=== PATIENT | male | born 1980 | race Caucasian/White ===

== ENCOUNTER 2016-11-09 21:07 | Emergency (ER) | payer BC ==
--- NOTE | 2016-11-09 22:15 | ER Document Report ---
HPI - HPI Patient complains to provider of: right knee pain Onset: This afternoon Onset/Duration: Sudden Pain Level: 5 Context: Patient presents to the emergency department with complaints of right knee pain. Patient reports he was unloading logs and twisted his knee. He denies falling on the knee. He denies past medical history of injury to the knee. Patient reports pain since that time. Associated Symptoms: None Exacerbated by: Movement, Walking Relieved by: Denies Similar symptoms previously: No Recently seen / treated by doctor: No - DERM Skin Color: Normal Past Medical History - General Information source: Patient - Social History Smoking Status: Unknown if Ever Smoked Cigarette use (# per day): No Chew tobacco use (# tins/day): Yes Frequency of alcohol use: None Drug Abuse: None Occupation: none Lives with: Family Family History: None Patient has suicidal ideation: No Patient has homicidal ideation: No Pulmonary Medical History: Reports: Hx Asthma Renal/ Medical History: Denies: Hx Peritoneal Dialysis Surgical Hx: Negative Vertical Provider Document - CONSTITUTIONAL Agree With Documented VS: Yes Exam Limitations: No Limitations General Appearance: WD/WN, No Apparent Distress - HEENT HEENT: Atraumatic, Normocephalic - NECK Neck: Normal Inspection, Supple - RESPIRATORY Respiratory: Breath Sounds Normal, No Respiratory Distress O2 Sat by Pulse Oximetry: 97 - CARDIOVASCULAR Cardiovascular: Regular Rate - MUSCULOSKELETAL/EXTREMETIES Musculoskeletal/Extremeties: MAEW, FROM, Tender - No obvious swelling no obvious deformity complains of pain to right knee medially reports pain with valgus/vargus stress. - NEURO Level of Consciousness: Awake, Alert, Appropriate Motor/Sensory: No Motor Deficit - DERM Integumentary: Warm, Dry Adult Front & Back Diagram: 1 - reports pain Course - Re-evaluation Re-evalutation: 11/09/16 Patient instructed on negative x-ray for knee immobilizer crutches importance of follow-up with orthopedics. Pt verbalized understanding to all instructions. - Vital Signs Vital signs: Temp Pulse Resp BP Pulse Ox 98.1 F 97 20 176/108 H 97 11/09/16 21:16 11/09/16 21:16 11/09/16 21:16 11/09/16 21:16 11/09/16 21:16 - Diagnostic Test Radiology reviewed: Image reviewed, Reports reviewed - RAD/ KNEE RIGHT 4 VIEWS IMPRESSION: NEGATIVE STUDY OF THE RIGHT KNEE. NO RADIOGRAPHIC EVIDENCE OF ACUTE INJURY Procedures - Immobilization Right Knee Pre-Proc Neuro Vasc Exam: Normal Immobilizer type: Knee immobilizer Performed by: PCT Post-Proc Neuro Vasc Exam: Unchanged from pre-exam Discharge - Discharge Clinical Impression: Right medial knee pain, Elevated blood pressure reading Condition: Stable Disposition: HOME, SELF-CARE Instructions: Use of Crutches ([facility]), Ice & Elevation ([facility]), Suspected Internal Knee Injury ([facility]), Oral Narcotic Medication ([facility]), Knee Immobilizing Splint ([facility] ) Additional Instructions: *You have been evaluated for right knee pain, suspect internal injury, elevated blood pressure reading *Maintain the splint and use the crutches *Rest/Ice/Elevate *Follow up with orthopedics-call for an appointment on Friday *Take medication as prescribed *Return to ED for worsening condition, changes, needs Monitor your blood pressure. Your blood pressure was elevated today. This may be because you were anxious, in pain or because you need medication. It is important to follow up with your primary care provider for full evaluation. Prescriptions: Oxycodone HCl/Acetaminophen [Percocet 5-325 mg Tablet] 1 - 2 tab PO ASDIR PRN # 15 tablet PRN Reason: Forms: Elevated Blood Pressure
[2016-11-09] MEDS ORDERED: HYDROCODONE/ACETAMINOPHEN 5-325 MG 6 TAB/DSPK PO PRN (22:22)
[2016-11-09 22:38] VITALS: BP 158/100
== END 2016-11-09 22:38 | disposition home or self-care (01) ==
LOC: ER 21:07
DX: M25.561 Pain in right knee (principal); X50.1XXA Overexertion from prolonged static or awkward postures, initial encounter; Y93.89 Activity, other specified; J45.909 Unspecified asthma, uncomplicated; R03.0 Elevated blood-pressure reading, without diagnosis of hypertension
CPT/HCPCS: 99283; 73564; L1830

== ENCOUNTER 2019-06-13 20:10 | Emergency (ER) | payer SELFPAY ==
[2019-06-13] MEDS ORDERED: DIPH/PERTUSS(ACELL)/TETANUS VAC/PF 0.5 ML SYR (>=10YO) IM ONE (20:25)
[2019-06-13] MEDS ORDERED: AMOXICILLIN TR/POT CLAVULANATE 500-125 MG TAB PO ONE (20:25)
--- NOTE | 2019-06-13 20:29 | ER Document Report ---
ED Medical Screen (RME) - General Chief Complaint: Animal Bite Stated Complaint: DOG BITE Time Seen by Provider: 06/13/19 20:22 Mode of Arrival: Ambulatory Information source: Patient Notes: 39-year-old male presented to ED for a dog bite to the left thumb and right arm. He states it happened yesterday at his parents house. He states there were 2 dogs fighting and his parents yard and he went to break the fight up. He states neither 1 of them looked sick but they were stray dog and he does not know whether the immunizations are up-to-date or not. He states his tetanus is not up-to-date. He states he is not allergic to anything. Smoker, he states he thinks between daily and weekly and denies any use of illicit drugs. He is alert oriented respirations regular and unlabored speaking in full sentences. He states he is not able to move his thumb due to the pain and swelling. He states he cleaned it yesterday with peroxide and then put Band-Aids on he has not put any current antibiotic ointment on it. I have greeted and performed a rapid initial assessment of this patient. A comprehensive ED assessment and evaluation of the patient, analysis of test results and completion of medical decision making process will be conducted by an additional ED providers. - Related Data Allergies/Adverse Reactions: No Known Allergies Allergy (Unverified 11/09/16 21:16) Past Medical History Pulmonary Medical History: Reports: Hx Asthma Renal/ Medical History: Denies: Hx Peritoneal Dialysis Past Surgical History: Reports: Hx Orthopedic Surgery - left thumb Physical Exam - Vital signs Vitals: Temp Pulse Resp BP Pulse Ox 98.1 F 103 H 20 130/76 H 100 06/13/19 20:18 06/13/19 20:18 06/13/19 20:18 06/13/19 20:18 06/13/19 20:18 Course - Vital Signs Vital signs: Temp Pulse Resp BP Pulse Ox 98.1 F 103 H 20 130/76 H 100 06/13/19 20:18 06/13/19 20:18 06/13/19 20:18 06/13/19 20:18 06/13/19 20:18
--- NOTE | 2019-06-13 21:02 | RADIOLOGY REPORT (SQ) ---
EXAM DESCRIPTION: XR FINGERS COMPLETED DATE/TME: 06/13/2019 20:26 CLINICAL HISTORY: 39 years, Male, Dog bite to left thumb COMPARISON: None. NUMBER OF VIEWS: Three TECHNIQUE: Frontal, oblique, and lateral radiographs were obtained LIMITATIONS: None. FINDINGS: Visualized osseous structures are normal in appearance. Joint spaces are well-maintained. No acute fracture or dislocation is evident. However, there is diffuse soft tissue swelling about the first digit. No retained radiopaque foreign body. IMPRESSION: Diffuse soft tissue swelling about the first digit without underlying acute osseous anomaly or retained radiopaque foreign body. copyright 2010 [employer]- All Rights Reserved
[2019-06-13] MEDS ORDERED: AMOXICILLIN TRIHYDRATE 500 MG CAPSULE PO ONE (21:10)
--- NOTE | 2019-06-13 21:15 | ER Document Report ---
ED Animal Bite - General Chief Complaint: Dog Bite Stated Complaint: DOG BITE Time Seen by Provider: 06/13/19 20:22 Mode of Arrival: Ambulatory Notes: Patient is a 39-year-old male that comes emergency department for chief complaint of dog bite to the left thumb and also the base of the right hand and to the right distal forearm. He states this happened yesterday in his parents house, he was trying to break up a fight between 2 dogs. He does not know the dog's immunization status. Patient is not up-to-date on his tetanus. He states that he cleaned the area, took Keflex he had leftover at home, did not want to come to the emergency department but his significant other brought him today. He denies any daily medications or reported past medical history. - Related Data Allergies/Adverse Reactions: No Known Allergies Allergy (Unverified 11/09/16 21:16) Past Medical History - General Information source: Patient - Social History Smoking Status: Former Smoker Frequency of alcohol use: Occasional Lives with: Family Family History: None Patient has suicidal ideation: No Patient has homicidal ideation: No Pulmonary Medical History: Reports: Hx Asthma Renal/ Medical History: Denies: Hx Peritoneal Dialysis Past Surgical History: Reports: Hx Orthopedic Surgery - left thumb - Immunizations Immunizations up to date: No Hx Diphtheria, Pertussis, Tetanus Vaccination: Yes Review of Systems - Review of Systems Constitutional: No symptoms reported EENT: No symptoms reported Cardiovascular: No symptoms reported Respiratory: No symptoms reported Gastrointestinal: No symptoms reported Genitourinary: No symptoms reported Male Genitourinary: No symptoms reported Musculoskeletal: See HPI Skin: See HPI Hematologic/Lymphatic: No symptoms reported Neurological/Psychological: No symptoms reported Physical Exam - Vital signs Vitals: Temp Resp Pulse Ox 98.1 F 20 100 06/13/19 20:10 06/13/19 20:10 06/13/19 20:10 - Notes Notes: GENERAL: Alert, interacts well. No acute distress. HEAD: Normocephalic, atraumatic. EYES: Pupils equal, round, and reactive to light. Extraocular movements intact. ENT: Oral mucosa moist, tongue midline. Oropharynx unremarkable. NECK: Full range of motion. Supple. Trachea midline. LUNGS: Clear to auscultation bilaterally, no wheezes, rales, or rhonchi. No respiratory distress. HEART: Regular rate and rhythm. No murmur ABDOMEN: Soft, non-tender. Non-distended. EXTREMITIES: Scattered puncture wounds and abrasions over the right forearm extending up to the wrist. Normal range of motion of the wrist, elbow, shoulder. Normal distal neurovascular exam. Normal right upper extremity otherwise. Left extremity normal except for lacerations over the left thumb. There is a flap laceration over the finger pad of the thumb, there is a laceration just behind the cuticle as well, no fingernail injury. Normal strength against resistance with flexion and extension of the thumb. There is some generalized soft tissue swelling in the area. Minimal erythema, no discolored discharge or severe pain, normal upper extremity otherwise. BACK: no cervical, thoracic, lumbar midline tenderness. No saddle anesthesia, normal distal neurovascular exam. NEUROLOGICAL: Alert and oriented x3. Normal speech. Cranial nerves II through XII grossly intact. PSYCH: Normal affect, normal mood. SKIN: Warm, dry, normal turgor. No rashes or lesions noted. Course - Re-evaluation Re-evalutation: Patient agrees with tetanus but not rabies vaccine. X-ray showing no foreign body or fracture. Right forearm with small abrasions and puncture wounds which are already healing. Patient does have flap laceration over the finger pad of the left thumb and also a laceration over the dorsal thumb in front but not including the cuticle. He has pain with bending but he still can flex and extend against resistance well, has normal sensation and capillary refill, does not appear to have injured the tendon, there is no heavy bleeding. There is some's soft tissue swelling but no severe pain, there is mild erythema and pinkness but no overt erythema, abnormal warmth, or noted cellulitis. It is too late to close this, I discussed with patient. This will be cleaned well, dressed with Xeroform, patient will be placed on Augmentin, discussed care, follow-up, and return precautions at length with patient and significant other. They state appreciation and agreement. - Vital Signs Vital signs: Temp Pulse Resp BP Pulse Ox 98.1 F 94 18 128/74 H 100 06/13/19 21:40 06/13/19 21:40 06/13/19 21:40 06/13/19 21:40 06/13/19 21:40 Discharge - Discharge Clinical Impression: Dog bite Qualifiers: Encounter type: initial encounter Qualified Code(s): W54.0XXA - Bitten by dog, initial encounter Laceration of left thumb Qualifiers: Encounter type: initial encounter Damage to nail status: without damage Foreign body presence: without foreign body Qualified Code(s): S61.012A - Laceration without foreign body of left thumb without damage to nail, initial encounter Laceration of right forearm Qualifiers: Encounter type: initial encounter Qualified Code(s): S51.811A - Laceration without foreign body of right forearm, initial encounter Condition: Stable Disposition: HOME, SELF-CARE Additional Instructions: Unfortunately the lacerations could not be closed both because of the risk of infection. The x-ray does not show a fracture or foreign body. Take the Augmentin as prescribed to completion to treat this. Consider an over the counter probiotic to avoid diarrhea. Keep the area clean, clean with soap and water, keep antibiotic dressing over the area. Take Tylenol or ibuprofen for pain. Return immediately for any signs of infection including developing swelling, spreading redness, severe pain, discolored discharge, fever/chills, or any other concerning symptoms. Prescriptions: Amox Tr/Potassium Clavulanate [Augmentin 875-125 Tablet] 1 tab PO BID 7 Days #14 tablet
[2019-06-13] MEDS ORDERED: OXYCODONE-ACETAMINOPHEN 5-325 MG TABLET PO ONE (21:21)
[2019-06-13] MEDS ORDERED: PROMETHAZINE HCL 25 MG TABLET PO ONE (21:21)
[2019-06-13 21:41] VITALS: BP 128/74
== END 2019-06-13 21:42 | disposition home or self-care (01) ==
LOC: ER 20:10
DX: S61.012A Laceration without foreign body of left thumb without damage to nail, initial encounter (principal); S51.811A Laceration without foreign body of right forearm, initial encounter; W54.0XXA Bitten by dog, initial encounter; Z23 Encounter for immunization
CPT/HCPCS: 90471; 90715; 99283

== ENCOUNTER 2019-11-22 15:01 | Emergency (ER) | payer SELFPAY ==
--- NOTE | 2019-11-22 15:58 | ER Document Report ---
ED Medical Screen (RME) - General Chief Complaint: Asthma Exacerbation Stated Complaint: ASTHMA ATTACK Time Seen by Provider: 11/22/19 15:45 Mode of Arrival: Ambulatory Information source: Patient Notes: HPI; 39-year-old male previous history of asthma no treatment years. Presents emergency room feeling like he cannot get a full breath. Patient denies shortness of breath or difficulty breathing. Not taking any medications. States he is going through a divorce and feels like "I am having a panic attack" no previous history of panic attacks. PE: Alert and oriented x3, obviously distressed. Shaky, distraught. Denies suicidal/homicidal ideation. Lungs clear to auscultation without rales, rhonchi, wheezes. Heart: Tachycardic without murmurs rubs or gallops. I have greeted and performed a rapid initial assessment of this patient. A comprehensive ED assessment and evaluation of the patient, analysis of test results and completion of the medical decision making process will be conducted by additional ED providers. I have specifically instructed the patient or family members with the patient to immediately return to any nursing staff should anything change in the patient's condition or with their chief complaint. TRAVEL OUTSIDE OF THE [place] IN LAST 30 DAYS: No - Related Data Allergies/Adverse Reactions: seafood Allergy (Uncoded 11/22/19 15:46) Past Medical History Pulmonary Medical History: Reports: Hx Asthma Renal/ Medical History: Denies: Hx Peritoneal Dialysis Past Surgical History: Reports: Hx Orthopedic Surgery - left thumb - Immunizations Immunizations up to date: No Hx Diphtheria, Pertussis, Tetanus Vaccination: Yes Physical Exam - Vital signs Vitals: Temp Pulse Resp BP Pulse Ox 97.6 F 97 24 H 157/113 H 98 11/22/19 15:02 11/22/19 15:02 11/22/19 15:02 11/22/19 15:02 11/22/19 15:02 Course - Vital Signs Vital signs: Temp Pulse Resp BP Pulse Ox 97.6 F 97 24 H 157/113 H 98 11/22/19 15:02 11/22/19 15:02 11/22/19 15:02 11/22/19 15:02 11/22/19 15:02
--- NOTE | 2019-11-22 16:23 | RADIOLOGY REPORT (SQ) ---
EXAM DESCRIPTION: CHEST 2 VIEWS IMAGES COMPLETED DATE/TIME: 11/22/2019 4:13 pm REASON FOR STUDY: Dyspnea COMPARISON: None. EXAM PARAMETERS: NUMBER OF VIEWS: two views TECHNIQUE: Digital Frontal and Lateral radiographic views of the chest acquired. RADIATION DOSE: NA LIMITATIONS: none FINDINGS: LUNGS AND PLEURA: No opacities, masses or pneumothorax. No pleural effusion. MEDIASTINUM AND HILAR STRUCTURES: No masses or contour abnormalities. HEART AND VASCULAR STRUCTURES: Heart normal size. No evidence for failure. BONES: No acute findings. HARDWARE: None in the chest. OTHER: No other significant finding. IMPRESSION: NO ACUTE RADIOGRAPHIC FINDING IN THE CHEST. TECHNICAL DOCUMENTATION: JOB ID: [id number] 2010 [employer]- All Rights Reserved Reading location - IP/workstation name: [email or web address]
[2019-11-22 16:41] LABS: APPEARANCE,URINE CLEAR; BILIRUBIN,URINE NEGATIVE (NEGATIVE); COLOR,URINE YELLOW; GLUCOSE, URINE NEGATIVE (NEGATIVE); KETONES,URINE NEGATIVE (NEGATIVE); LEUKOCYTE ESTERASE,URINE TRACE (NEGATIVE); NITRITE,URINE NEGATIVE (NEGATIVE); PROTEIN,URINE 30 mg/dL (NEGATIVE); URINE SPECIFIC GRAVITY 1.011; UROBILINOGEN,URINE NEGATIVE mg/dL (<2.0)
[2019-11-22] MEDS ORDERED: PREDNISONE 10 MG TABLET PO ONE (16:46)
[2019-11-22] MEDS ORDERED: ALBUTEROL SULFATE HFA (90 MCG/PUFF) 8 GM MDI (1 MDI/ER DISP) IH PRN (16:46)
[2019-11-22] MEDS ORDERED: PREDNISONE 20 MG TABLET PO ONE (16:48)
[2019-11-22 16:54] LABS: URINE AMPHETAMINES SCREEN NEGATIVE; URINE BARBITURATES SCREEN NEGATIVE; URINE BENZODIAZEPINES SCREEN NEGATIVE; URINE COCAINE SCREEN NEGATIVE; URINE MARIJUANA (THC) SCREEN NEGATIVE; URINE METHADONE SCREEN NEGATIVE; URINE PHENCYCLIDINE SCREEN NEGATIVE
--- NOTE | 2019-11-22 16:57 | ER Document Report ---
ED General - General Chief Complaint: Anxiety Stated Complaint: ASTHMA ATTACK Time Seen by Provider: 11/22/19 15:45 Primary Care Provider: [facility] [Provider Group] - Follow up as needed [facility] [Provider Group] - Follow up as needed [facility] [Provider Group] - Follow up as needed Mode of Arrival: Ambulatory Information source: Patient Notes: 39-year-old male presented to ED for complaint of asthma exacerbation short of breath cannot get his full breath and feels like he is having a panic attack. Patient states he has albuterol at home has not been taking any medication because he is not needed it but has been from his for 2 weeks and is having a panic attack today. He states he had quit drinking and then he drank some beer last night and he thinks that is part of his problem. He is alert oriented respirations regular nonlabored speaking in full sentences. He denies any suicidal or homicidal ideations. Lungs are clear no wheezes noted. He does have a [id number] in the parking lot and he states he is going to stay with his mother. TRAVEL OUTSIDE OF THE [place] IN LAST 30 DAYS: No - HPI Onset: This morning Onset/Duration: Gradual Quality of pain: No pain Severity: None Pain Level: Denies Associated symptoms: Shortness of breath Exacerbated by: Other - Anxiety due to upcoming divorce been 2 weeks Relieved by: Denies Similar symptoms previously: Yes Recently seen / treated by doctor: No - Related Data Allergies/Adverse Reactions: seafood Allergy (Uncoded 11/22/19 15:46) Past Medical History - General Information source: Patient - Social History Smoking Status: Never Smoker Chew tobacco use (# tins/day): Yes Frequency of alcohol use: currently cutting back Drug Abuse: None Lives with: Alone Family History: None, Reviewed & Not Pertinent Patient has homicidal ideation: No - Past Medical History Cardiac Medical History: Reports: None Pulmonary Medical History: Reports: Hx Asthma EENT Medical History: Reports: None Neurological Medical History: Reports: None Endocrine Medical History: Reports: None Renal/ Medical History: Reports: None Malignancy Medical History: Reports None GI Medical History: Reports: None Musculoskeletal Medical History: Reports Hx Musculoskeletal Trauma Skin Medical History: Reports None Psychiatric Medical History: Reports: Hx Anxiety, Other - Panic attack Traumatic Medical History: Reports: None Infectious Medical History: Reports: None Past Surgical History: Reports: Hx Orthopedic Surgery - left thumb - Immunizations Immunizations up to date: No Hx Diphtheria, Pertussis, Tetanus Vaccination: Yes Review of Systems - Review of Systems Constitutional: No symptoms reported EENT: No symptoms reported Cardiovascular: No symptoms reported Respiratory: Short of breath. denies: Wheezing Gastrointestinal: No symptoms reported Genitourinary: No symptoms reported Male Genitourinary: No symptoms reported Musculoskeletal: No symptoms reported Skin: No symptoms reported Hematologic/Lymphatic: No symptoms reported Neurological/Psychological: Anxiety - Panic attack -: Yes All other systems reviewed and negative Physical Exam - Vital signs Vitals: Temp Pulse Resp BP Pulse Ox 97.6 F 97 24 H 157/113 H 98 11/22/19 15:02 11/22/19 15:02 11/22/19 15:02 11/22/19 15:02 11/22/19 15:02 Interpretation: Hypertensive - 143/91. No: Hypotensive, Bradycardic, Tachycardic, Hypoxic, Tachypneic, Febrile - General General appearance: Appears well, Alert - HEENT Head: Normocephalic, Atraumatic Eyes: Normal Pupils: PERRL - Respiratory Respiratory status: No respiratory distress Chest status: Nontender Breath sounds: Normal. No: Nonproductive cough, Productive cough, Rales, Rhonchi, Stridor, Wheezing Chest palpation: Normal - Cardiovascular Rhythm: Regular Heart sounds: Normal auscultation Murmur: No - Abdominal Inspection: Normal Distension: No distension Bowel sounds: Normal Tenderness: Nontender Organomegaly: No organomegaly - Back Back: Normal, Nontender - Extremities General upper extremity: Normal inspection, Nontender, Normal color, Normal ROM, Normal temperature General lower extremity: Normal inspection, Nontender, Normal color, Normal ROM, Normal temperature, Normal weight bearing. No: Brenna's sign - Neurological Neuro grossly intact: Yes Cognition: Normal Orientation: AAOx4 Amor Coma Scale Eye Opening: Spontaneous [place] Coma Scale Verbal: Oriented [place] Coma Scale Motor: Obeys Commands [place] Coma Scale Total: 15 Speech: Normal Motor strength normal: LUE, RUE, LLE, RLE Sensory: Normal - Psychological Associated symptoms: Anxious. No: Agitated, Angry Notes: Denies suicidal or homicidal ideation at this time. States he is just upset because he is been from his for 2 weeks and is headed towards a divorce and is having a hard time handle this. He does have asthma and states he has albuterol at home and at his mother's house needs going to his mother's house at this time. He would like to steroids to help with the shortness of breath. I did give him a list of mental health workers to help with his anxiety and panic attacks. I did tell him that his blood pressure was elevated today but it could be due to his anxiety but he needed to follow-up with her primary care doctor to reevaluate that. Patient verbalized understanding and agreement with this treatment plan and was discharged home. - Skin Skin Temperature: Warm Skin Moisture: Dry Skin Color: Normal Course - Re-evaluation Re-evalutation: 11/23/19 00:14 Patient states he was having more of an anxiety attack and asthma attack and did not want blood work drawn as this was not chest pain like normal. Patient was examined I did have him lay down and take deep breaths to relax. His pulse was then under 100 and his blood pressure was much better. I did inform him that he needed to take better care of himself and to follow-up with mental health. I did give him a mental health list. Patient verbalized understanding and agreement with this treatment plan. I did send him home with a prescription for prednisone. He states he had albuterol at home as his mother was also asthmatic. He has his own neb machine at home. He states he could not afford a prescription for a albuterol inhaler at this time. - Vital Signs Vital signs: Temp Pulse Resp BP Pulse Ox 98.3 F 94 18 143/91 H 94 11/22/19 16:59 11/22/19 16:59 11/22/19 16:59 11/22/19 16:59 11/22/19 16:59 - Laboratory Laboratory results interpreted by me: 11/22/19 16:22 Urine Protein 30 H Urine Blood SMALL H Ur Leukocyte Esterase TRACE H - Diagnostic Test Radiology reviewed: Image reviewed, Reports reviewed Discharge - Discharge Clinical Impression: Panic attack Asthma exacerbation Qualifiers: Asthma severity: mild Asthma persistence: unspecified Qualified Code(s): J45.901 - Unspecified asthma with (acute) exacerbation Condition: Stable Disposition: HOME, SELF-CARE Instructions: Anxiety ([facility]) Additional Instructions: Panic Attack The cause of panic attacks is unknown. Symptoms can include chest pain, shortness of breath, palpitations, sweats, and a sense of smothering or impending doom. In time, the panic attacks can lead to generalized anxiety and phobias. Because the symptoms can mimic heart attack, pulmonary embolism, and other serious diseases, the physician has evaluated you for these conditions. There is no evidence of a serious problem. An acute panic attack usually goes away by itself without treatment. A severe attack can be treated with medicine to calm you. Long-term, antidepressant medicines may help prevent attacks. Counselling can also be very beneficial in dealing with panic attacks. Panic attacks are less likely if you are getting regular exercise, proper diet, and plenty of sleep. It's normal for panic attacks to cause many frightening symptoms. However, you should call or return if your symptoms change significantly or if you are worsening. ASTHMA: You have been diagnosed as having asthma. This is a condition where there is episodic tightness in the bronchial tubes. Allergies, infections, and polluted or cold air may be contributing factors. Emergency treatment of a severe asthma attack may include adrenaline shots, or bronchodilator aerosol. You may feel lightheaded, have a decreased exercise tolerance and a rapid pulse for an hour or two. Rest and get plenty of fluids. Home treatment of asthma requires bronchodilator drugs. These can be administered by injection, inhalation, or by mouth. Antibiotics and corticosteroids may be required for some patients. You should avoid chemical fumes, dusts, pollens, and exercising in very cold or dry air. If you smoke, stop!! If you develop a fever, increased wheezing, chest pain, or severe shortness of breath, you should contact the doctor immediately. STEROID MEDICATION: You have been given an injection of or oral medicine of the cortisone/steroid class. This medication is used to control inflammation or allergy. Johan t is usually only given for a short period of time, until the acute process subsides. There are usually no side effects from short-term use of cortisone-like medications. Some persons feel an increased sense of well-being and are not sleepy at bedtime. Long-term use of cortisone medications is best avoided, unless required for a severe condition. If your condition does not remit, or relapses after the course of corticosteroid medication, you should consult your physician. INHALED BRONCHODILATORS: You have received treatment(s) of and/or prescription for an inhaled bronchodilator -- a medication which stimulates the airways in the lung to dilate. This improves the flow of air in asthma, bronchitis, and emphysema. These medicines have some similarity to adrenaline, and can cause similar side effects: shakiness, racing heart, and a sense of nervousness. These side effects decrease with time. Contact your doctor if these side effects are severe. Do not over-use the medicine. Too-frequent use of the inhaler may make it ineffective. Call your doctor if the inhaler is not controlling your symptoms at the prescribed doses. SMOKING: If you smoke, you should stop smoking. The tar and chemicals in cigarette smoke are harmful. Smoking has been shown to cause: emphysema chronic bronchitis lung cancer mouth and throat cancer stomach and pancreas cancer premature aging defects In addition, smoking increases ear and lung infections in children of smo kers. USE OF ACETAMINOPHEN (Tylenol): Acetaminophen may be taken for pain relief or fever control. It's much safer than aspirin, offering a wider range of "safe" dosages. It is safe during . Some brand names are Tylenol, Panadol, Datril, Anacin 3, Tempra, and Liquiprin. Acetaminophen can be repeated every four hours. The following are maximum recommended dosages: WEIGHT Dose Drops Elixir Chewable(80mg) (LBS.) drprs=droppers tsp=teaspoon 6 40 mg 0.4 ml (1/2) 6-11 80 mg 0.8 ml (full) tsp 1 tab 12-16 120 mg 1 1/2 drprs 3/4 tsp 1 1/2 tabs 17-23 160 mg 2 drprs 1 tsp 2 tabs 24-30 240 mg 3 drprs 1 1/2 tsp 3 tabs 30-35 320 mg 2 tsp 4 tabs 36-41 360 mg 2 1/4 tsp 4 1/2 tabs 42-47 400 mg 2 1/2 tsp 5 tabs 48-53 480 mg 3 tsp 6 tabs 54-59 520 mg 3 1/4 tsp 6 1/2 tabs 60-64 560 mg 3 1/2 tsp 7 tabs 65-70 600 mg 3 3/4 tsp 7 1/2 tabs 71-76 640 mg 4 tsp 8 tabs 77-82 720 mg 4 1/2 tsp 9 tabs 83-88 800 mg 5 tsp 10 tabs >89 pounds or adults 650 mg to 900 mg Acetaminophen can be repeated every four hours. Maximum dose not to exceed 4000 mg a day. These maximum recommended dosages are slightly higher than the dosages written on the product container, but these dosages are very safe and below the toxic dosage for acetaminophen. FOLLOW-UP CARE: If you have been referred to a physician for follow-up care, call the physicians office for an appointment as you were instructed or within the next two days. If you experience worsening or a significant change in your symptoms, notify the physician immediately or return to the Emergency Department at any time for re-evaluation. Prescriptions: Prednisone [Deltasone 10 mg Tablet] 10 mg PO ASDIR PRN #21 tablet PRN Reason: Forms: Elevated Blood Pressure, Smoking Cessation Education Referrals: [facility] [Provider Group] - Follow up as needed [facility] [Provider Group] - Follow up as needed [facility] [Provider Group] - Follow up as needed
[2019-11-22 17:00] VITALS: BP 143/91
== END 2019-11-22 17:08 | disposition home or self-care (01) ==
LOC: ER 15:01
DX: J45.901 Unspecified asthma with (acute) exacerbation (principal); F41.0 Panic disorder [episodic paroxysmal anxiety]; F41.9 Anxiety disorder, unspecified; R06.02 Shortness of breath
CPT/HCPCS: 99283; 81001; 80307; 71046; J7512